=== PATIENT | female | born 1955 | race Caucasian/White ===

== ENCOUNTER → 2018-06-01 11:44 | Outpatient (CLI) | payer BC, SELFPAY ==
--- NOTE | 2018-06-01 11:50 | XR_ITS ---
XR humerus LT CLINICAL INDICATION: ITS.REASON: LT UPPER ARM PAIN,NO TRAUMA ORDERING PHYSICIAN: Paxton Antonio MD PATIENT AGE: 62 years Comparison: None FINDINGS: No bony or joint abnormality IMPRESSION: Negative left humerus
== END ==
PROVIDERS: PCP Family Medicine; Visit Provider Family Medicine
DX: M79.622 Pain in left upper arm (principal)
CPT/HCPCS: 73060

== ENCOUNTER → 2021-12-30 11:20 | Outpatient (CLI) | payer MEDICARE, SELFPAY | PROVIDERS: PCP Family Medicine; Visit Provider Obstetrics & Gynecology Gynecology | DX: Z00.00 Encounter for general adult medical examination without abnormal findings (principal) ==

== ENCOUNTER → 2021-12-31 08:21 | Outpatient (CLI) | payer MEDICARE, SELFPAY ==
[2021-12-31 08:57] LABS: Eosinophils # 0.1 K/mm3 (0.0-0.4); Eosinophils % 2.1 % (0.1-12.0); Hematocrit 40.5 % (37.0-47.0); Lymphocytes # 1.3 K/mm3 (0.7-4.5); Lymphocytes % 29.8 % (10-50); Mean Corpuscular Hemoglobin 31.1 pg (27.0-31.2); Mean Corpuscular Volume 97.2 fl (81-99); Mean Platelet Volume 9.2 fl (7.4-10.4); Monocytes # 0.2 K/mm3 (0.1-1.0); Monocytes % 5.2 % (1.7-9.3); Neutrophils # 2.7 K/mm3 (1.8-7.8); Neutrophils % 61.9 % (37.0-80.0); Platelet Count 240 K/mm3 (142-424); Red Blood Count 4.17 M/mm3 (4.20-5.40); Red Cell Distribution Width 13.4 % (11.5-17.5); White Blood Count 4.4 K/mm3 (4.8-10.8)
[2021-12-31 09:32] LABS: Chloride 105 mmol/L (98-107)
[2021-12-31 09:33] LABS: Potassium 4.3 mmoL/L (3.5-5.1); Sodium 141 mmol/L (136-145)
[2021-12-31 09:35] LABS: Alanine Aminotransferase 21 U/L (12-78); Alkaline Phosphatase 109 U/L (38-126); Anion Gap 11.3 mEq/L (5-15); Aspartate Amino Transferase 29 U/L (14-36); Bilirubin,Total 0.4 mg/dl (0.2-1.3); Blood Urea Nitrogen 21 mg/dl (7-17); Carbon Dioxide 29 mmol/L (22.0-30.0); Cholesterol 219 mg/dl (140-200); Estimated Glomerular Filt Rate 72 ml/min (>60); GFR (African American) 87 ML/MIN (>60); Triglycerides 60 mg/dl (30-150); VLDL Cholesterol 12 mg/dL (0-40)
[2021-12-31 09:36] LABS: Albumin Level 4.2 g/dl (3.5-5.0); Albumin/Globulin Ratio 1.7 (1.1-1.8); Chol/HDL Ratio 3.8 (1-3.5); Globulin 2.5 g/dL (1.3-3.2); Glucose 88 mg/dl (74-100); HDL Cholesterol 58 mg/dl (40-60); Total Protein,Serum 6.7 g/dl (6.3-8.2)
[2021-12-31 09:47] LABS: Direct LDL Cholesterol 123.71 mg/dL (100-129)
[2021-12-31 11:51] LABS: 25-OH Vitamin D, Total 35.1 ng/mL (30-100)
== END ==
PROVIDERS: PCP Family Medicine; Visit Provider Obstetrics & Gynecology Gynecology
DX: Z00.00 Encounter for general adult medical examination without abnormal findings (principal); E03.9 Hypothyroidism, unspecified; E78.5 Hyperlipidemia, unspecified; E55.9 Vitamin D deficiency, unspecified
CPT/HCPCS: 36415; 80053; 80061; 82306; 85025

== ENCOUNTER 2022-03-27 11:02 | Emergency (ER) | payer OTHER, MEDICARE, SELFPAY ==
--- NOTE | 2022-03-27 11:34 | EXP.UTC ---
Discharge Plan Disposition Patient Disposition: Home, Self-Care Condition: Good Prescriptions Prescriptions: New ibuprofen [ibuprofen] 600 mg tablet 600 mg PO Q6HP PRN (Reason: Mild Pain) Qty: 30 0RF No Action levothyroxine [Euthyrox] 25 mcg tablet 25 mcg PO DAILY Referrals Follow up/Referrals: Paxton Antonio MD [Primary Care Provider] - See instructions Jammie Amaya DPM [Staff Physician] - See instructions Activity Restrictions/Add. Instructions Additional Instructions/Restrictions: Rest the extremity, apply ice for 15 minutes as tolerated three or four times per day, Wear the rajesh wrap for compression, Elevate the extremity as tolerated while you are resting. Take ibuprofen for pain. I sent in a prescription to your pharmacy. Follow up with Dr. Amaya (podiatry). I put in a referral but you need to call her office and schedule an appointment. Follow up with your regular doctor. GO TO THE ER FOR ANY WORSENING SYMPTOMS Clinical Impressions Clinical Impression: Sprain of foot, right, Sprain of ankle, right Instructions Patient Instructions: DI for Ankle Sprain, DI for Foot Sprain Discharge ED Provider: Howie Mancera [facility] General Stated complaint: [id number] right ankle Time Seen by Provider: 03/27/22 11:34 History of Present Illness Provider Complaint: She states that she stepped in a hole yesterday at work and twisted her right ankle. Since then she has had right ankle pain and swellling. Related Data Home Medications Medication Instructions Recorded Confirmed levothyroxine 25 mcg tablet 25 mcg PO DAILY thyroid 07/30/21 03/27/22 (Euthyrox) Previous Rx's Medication Instructions Recorded ibuprofen 600 mg tablet 600 mg PO Q6HP PRN Mild Pain #30 03/27/22 tabs Allergies Allergy/AdvReac Type Severity Reaction Status Date / Time fluconazole Allergy Severe Rash Verified 03/27/22 11:48 Sulfonamide Related Allergy Unknown Uncoded 07/30/21 08:24 [facility] Disclaimer: The information contained in this section may have been updated after the patient was seen, as this information can be updated by other users. Social History Smoking Status: Never smoker alcohol intake: never substance use type: denies use current occupational status: employed Travel in the last 8 weeks: None ROS Obtained: Yes All systems reviewed & no additional complaints except as documented Constitutional Constitutional: Denies chills and Denies fever(s) Integumentary/Breasts Skin/Breast: Denies redness, Denies rash and Denies wounds Neurologic Neurologic: Denies paresthesias Physical Exam General General appearance: alert and in no apparent distress Head Head exam: atraumatic, normocephalic and normal inspection Eye Eye exam: Present normal appearance, PERRL and EOMI ENT ENT exam: Present normal exam, normal oropharynx, mucous membranes moist, TM's normal bilaterally and normal external ear exam Neck Neck exam: Present normal inspection, full ROM and trachea midline; Absent meningismus or lymphadenopathy Chest Chest inspection: Present normal inspection and symmetric chest wall rise; Absent tenderness Respiratory Respiratory exam: Present normal lung sounds bilaterally; Absent respiratory distress Cardiovascular Cardiovascular exam: Present regular rate and normal rhythm; Absent JVD Abdominal Exam Abdominal exam: Present soft and normal bowel sounds; Absent distention, tenderness or guarding Extremities Exam Extremities exam: Present normal capillary refill; Absent calf tenderness Expanded Lower Extremity Exam Right: Knee exam: Present normal inspection and full ROM; Absent tenderness Lower leg exam: Present normal inspection, full ROM and Achilles tendon intact; Absent tenderness, swelling, abrasion, laceration, ecchymosis, deformity, crepitus, dislocation, erythema, palpable cord or Homans' sign
--- NOTE | 2022-03-27 11:41 | XR_ITS ---
FINAL REPORT CLINICAL HISTORY: twisted right ankle and foot FINDINGS: AP, oblique and lateral views of the right foot were obtained. There is no prior exam for comparison. There is no acute fracture or dislocation. There is a small calcification between the talus and navicular which is likely a secondary ossicle. The joint spaces are preserved. Soft tissues are normal. IMPRESSION: No acute osseous abnormality of the right foot. Reviewed, Interpreted and Dictated by Colleen Joiner MD Transcribed by Jayshree Hernandez Authenticated and [facility]
--- NOTE | 2022-03-27 11:41 | XR_ITS ---
FINAL REPORT CLINICAL HISTORY: twisted right ankle and foot FINDINGS: AP, oblique, and lateral views of the right ankle were obtained. There is no prior exam for comparison. There is a small calcification distal to the tip of the medial malleolus which could represent a very small avulsion fracture, age indeterminate. No other osseous abnormality is seen. The ankle mortise is intact. Soft tissues are normal. IMPRESSION: Possible very small, age indeterminate, avulsion fracture distal to the tip of the medial malleolus. Reviewed, Interpreted and Dictated by Colleen Joiner MD Transcribed by Jayshree Hernandez Authenticated and [facility]
[2022-03-27 11:45] VITALS: BP 126/80; PULSE 96; RESP 20; TEMP 36.9; O2SAT 98; BMI 25.7
[2022-03-27 12:45] VITALS: BP 126/80; PULSE 96; RESP 20; TEMP 36.9; O2SAT 98
== END 2022-03-27 12:45 | disposition home or self-care (01) ==
PROVIDERS: Emergency Provider Nurse Practitioner Family; PCP Family Medicine
DX: S93.601A Unspecified sprain of right foot, initial encounter (principal); S93.401A Sprain of unspecified ligament of right ankle, initial encounter; W18.42XA Slipping, tripping and stumbling without falling due to stepping into hole or opening, initial encounter; Y99.0 Civilian activity done for income or pay
CPT/HCPCS: 73610; 73630; 99212; 99213; G0463

== ENCOUNTER 2022-07-25 15:00 | Outpatient (RCR) | payer OTHER, SELFPAY ==
--- NOTE | 2022-06-06 09:02 | HMH.PTOPEV ---
PT Outpatient Evaluation Rehab PT Outpatient Evaluation Start: 06/06/22 07:54 Freq: Status: Active Protocol: Document 06/06/22 08:04 KENTRELL (Rec: 06/06/22 09:02 JOJOLE [id number]) E-signed By Nany Arzola, PT Outpatient Therapy Subjective History Subjective History Pt presents to the PT clinic s /p R ankle injury on 03/26/2022 . Pt states she was walking outside in the parking lot over uneven ground and twisted her R ankle and fell. Pt went to urgent treatment the next day where they performed and x -ray which was negative for fractures. Pt went to see Dr. Amaya where she provided a walking boot and ordered a MRI . Pt states that she has been wearing the walking boot since March. 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 Pt states that the outside of her R ankle is tender to the touch and gets really sore/ swells after she walks on it for long periods of time. Chief Complaint Pain,Stiff,Swelling,Weakness Symptom Type Ache,Throb,Tingling Symptoms Relieved By Rest/Positioning,Ice,Brace/ Support,OTC Meds,Activity Symptoms Aggravated By Standing,Bending/Stooping, Physical Activity,Twisting, Walking Prior Functional Limitations None Current Functional Limitations Lifting,Housework,Driving, Sleeping,Standing,Squatting, Recreation Activity,Walking, Stairs,Balance,Bending/ Stooping Symptom Description Constant but Variable,Pain at Rest,Activity Dependent Level of pain today (0-10) 4 Pain scale - at its best (0-10) 4 Pain scale - at its worst (0-10) 5 Ankle/Foot Eval Gait Observation General Gait Pattern Observation Antalgic Gait,Decrease Weight Bear (R) Assistive Device Ambulation Assistive Device None Palpation Tenderness right Ankle/Foot Palpation Findings Tenderness ATF TTP positive PTF TTP negative CF TTP positive Deltoid ligament TTP
--- NOTE | 2022-07-08 08:37 | HMH.RHREAS ---
Rehab Reassessment Rehab OP Re-assessment Start: 07/08/22 08:25 Freq: Status: Active Protocol: Document 07/08/22 08:25 DEQUAN (Rec: 07/08/22 08:37 DEQUAN [id number]) E-signed By Jyotsna Solano PT Rehab Re-assessment Subjective Subjective Pt reports she feels 80% improved since starting PT. Pt reports she was doing really well until she performed a calf stretch at PT then noticed increased swelling of the posterolateral aspect of the right ankle and increased soreness described as pulling . Pt denies paresthesia. 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 Pt reports her next follow-up visit with her MD to discuss return to work is 07/21/22. Pt reports pain at worst as 4/10 with activity and at rest 2-3/10. Pt reports she is compliant with her HEP. Pt reports she has been wearing her brace outside of the home and trying to wean from it with household ambulation as instructed per MD. Objective Objective Notes R ankle palpation: mild TTP of the posterolateral ankle along lateral malleoli and peroneal tendons R ankle AROM: DF 4, PF 40, Inv 25, Eversion 12 R ankle MMT: 4/5 grossly in open chain Special test: negative heel percussion Assessment Progress Assessment Progressing as Expected Assessment Notes Pt has attended 8 PT visits consisting of aerobic exercise , ankle AROM, LE stretching/ strengthening, balance/ proprioception training and modalities with good tolerance . Pt demonstrated improved R ankle AROM and MMT this date
== END 2022-07-25 15:05 | disposition home or self-care (01) ==
LOC: PT 15:00
PROVIDERS: PCP Family Medicine; Visit Provider Podiatrist
DX: S99.911D Unspecified injury of right ankle, subsequent encounter (principal); M25.571 Pain in right ankle and joints of right foot; M79.671 Pain in right foot; S93.491D Sprain of other ligament of right ankle, subsequent encounter; S99.921D Unspecified injury of right foot, subsequent encounter; S93.601D Unspecified sprain of right foot, subsequent encounter; S86.311D Strain of muscle(s) and tendon(s) of peroneal muscle group at lower leg level, right leg, subsequent encounter; S86.011D Strain of right Achilles tendon, subsequent encounter; M25.371 Other instability, right ankle
CPT/HCPCS: 97010; 97014; 97033; 97035; 97110; 97112; 97163; 97164; 97530; 97760; G0283

== ENCOUNTER → 2022-07-29 16:11 | Outpatient (CLI) | payer MEDICARE, SELFPAY | PROVIDERS: PCP Physician Assistant; Visit Provider Physician Assistant | DX: N39.0 Urinary tract infection, site not specified (principal) | CPT/HCPCS: 87086 ==

== ENCOUNTER 2022-12-29 13:44 | Outpatient (RCR) | payer MEDICARE, SELFPAY | END 2022-12-29 14:30 | disposition home or self-care (01) | LOC: PT 13:44 | PROVIDERS: PCP Physician Assistant; Visit Provider Nurse Practitioner | DX: R42 Dizziness and giddiness (principal) | CPT/HCPCS: 97163 ==

== ENCOUNTER → 2023-01-05 07:32 | Outpatient (CLI) | payer MEDICARE, SELFPAY ==
[2023-01-05 08:05] LABS: Basophils # 0.1 K/mm3 (0-0.2); Basophils % 1.3 % (0.1-2.0); Eosinophils # 0.1 K/mm3 (0.0-0.4); Eosinophils % 2.8 % (0.1-12.0); Hematocrit 41.3 % (37.0-47.0); Hemoglobin 14.2 g/dL (12.2-16.2); Lymphocytes # 1.4 K/mm3 (0.7-4.5); Lymphocytes % 33.7 % (10-50); Mean Corpuscular HGB Conc 34.4 g/dL (31.8-35.4); Mean Corpuscular Hemoglobin 32.4 pg (27.0-31.2); Mean Corpuscular Volume 94.1 fl (81-99); Mean Platelet Volume 9.1 fl (7.4-10.4); Monocytes # 0.3 K/mm3 (0.1-1.0); Monocytes % 6.1 % (1.7-9.3); Neutrophils # 2.4 K/mm3 (1.8-7.8); Neutrophils % 56.1 % (37.0-80.0); Platelet Count 207 K/mm3 (142-424); Red Blood Count 4.39 M/mm3 (4.20-5.40); Red Cell Distribution Width 12.9 % (11.5-17.5); White Blood Count 4.2 K/mm3 (4.8-10.8)
[2023-01-05 08:48] LABS: Chloride 106 mmol/L (98-107)
[2023-01-05 08:49] LABS: Potassium 4.6 mmoL/L (3.5-5.1); Sodium 141 mmol/L (136-145)
[2023-01-05 08:51] LABS: Alanine Aminotransferase 22 U/L (12-78); Albumin Level 4.3 g/dl (3.5-5.0); Alkaline Phosphatase 91 U/L (38-126); Aspartate Amino Transferase 29 U/L (14-36); Bilirubin,Total 0.4 mg/dl (0.2-1.3); Blood Urea Nitrogen 19 mg/dl (7-17); Estimated Glomerular Filt Rate 63 ml/min (>60); GFR (African American) 76 ML/MIN (>60)
[2023-01-05 08:52] LABS: Albumin/Globulin Ratio 1.7 (1.1-1.8); Anion Gap 9.6 mEq/L (5-15); Calcium 8.9 mg/dl (8.4-10.2); Carbon Dioxide 30 mmol/L (22.0-30.0); Chol/HDL Ratio 4.3 (1-3.5); Cholesterol 205 mg/dl (140-200); Globulin 2.5 g/dL (1.3-3.2); Glucose 86 mg/dl (74-100); HDL Cholesterol 48 mg/dl (40-60); Total Protein,Serum 6.8 g/dl (6.3-8.2); Triglycerides 87 mg/dl (30-150); VLDL Cholesterol 17 mg/dL (0-40)
[2023-01-05 09:04] LABS: Direct LDL Cholesterol 126.96 mg/dL (100-129)
[2023-01-05 09:23] LABS: Thyroid Stimulating Hormone 3.56 uIU/mL (0.465-4.68)
== END ==
PROVIDERS: PCP Family Medicine; Visit Provider Obstetrics & Gynecology Gynecology
DX: E03.9 Hypothyroidism, unspecified (principal); E78.00 Pure hypercholesterolemia, unspecified
CPT/HCPCS: 36415; 80053; 80061; 84443; 85025

== ENCOUNTER 2024-04-01 08:29 | Outpatient (CLI) | payer MEDICARE, SELFPAY ==
[2024-04-01 09:54] LABS: Hemoglobin A1C 5.1 % (4.0-6.0)
[2024-04-01 10:03] LABS: Alanine Aminotransferase 29 U/L (12-78); Albumin Level 4.2 g/dl (3.5-5.0); Alkaline Phosphatase 88 U/L (38-126); Anion Gap 7.4 mEq/L (5-15); Aspartate Amino Transferase 35 U/L (14-36); Bilirubin,Total 0.4 mg/dl (0.2-1.3); Blood Urea Nitrogen 21 mg/dl (7-17); Calcium 9.3 mg/dl (8.4-10.2); Carbon Dioxide 28 mmol/L (22.0-30.0); Chloride 106 mmol/L (98-107); Chol/HDL Ratio 3.3 (1-3.5); Cholesterol 202 mg/dl (140-200); Estimated Glomerular Filt Rate 72 ml/min (>60); GFR (African American) 87 ML/MIN (>60); Globulin 2.1 g/dL (1.3-3.2); Glucose 83 mg/dl (74-100); HDL Cholesterol 62 mg/dl (40-60); Potassium 4.4 mmoL/L (3.5-5.1); Sodium 137 mmol/L (136-145); Total Protein,Serum 6.3 g/dl (6.3-8.2); Triglycerides 65 mg/dl (30-150); VLDL Cholesterol 13 mg/dL (0-40)
[2024-04-01 10:34] LABS: Thyroid Stimulating Hormone 2.22 uIU/mL (0.465-4.68)
== END 2024-04-01 23:59 | disposition home or self-care (01) ==
LOC: LAB 08:30
PROVIDERS: PCP Family Medicine; Visit Provider Obstetrics & Gynecology Gynecology
DX: Z01.419 Encounter for gynecological examination (general) (routine) without abnormal findings (principal); E78.00 Pure hypercholesterolemia, unspecified; E03.9 Hypothyroidism, unspecified; Z13.1 Encounter for screening for diabetes mellitus
CPT/HCPCS: 36415; 80053; 80061; 83036; 84443